=== PATIENT | male | born 1960 | race Asian ===

== ENCOUNTER 2021-04-05 10:15 | Outpatient (RCR) | payer MEDICARE, SELFPAY ==
--- NOTE | 2021-03-29 15:59 | PT.OIE ---
Current Diagnoses Paraplegia, unspecified (03/29/21) Other chronic pain (03/29/21) Lumbago with sciatica, right side (03/29/21) Lumbago with sciatica, left side (03/29/21) Cramp and spasm (03/29/21) Unspecified abnormalities of gait and mobility (03/29/21) Other specified postprocedural states (03/29/21) Visit Care Team Role Provider Type Harvinder Danielson DO Attending Provider Non-Staff Primary Care Provider Referring Provider Specialty: [facility] Address: [address] [place] [address], [id number] Email: Physical Therapy Initial Evaluation PT-OP-A Visit Information Start: 03/25/21 10:40 Freq: Status: Active Protocol: Document 03/29/21 15:23 OF (Rec: 03/29/21 15:59 OF [id number]) Out-Patient Physical Therapy Visit Information Visit Information Visit Type Initial Evaluation Visit Start Time 13:00 Visit Stop Time 13:44 Total Visit Minutes 44 Visit Number 1 Evaluation Information Evaluation Date 03/29/21 Precautions Precautions prior spinal surgery, pt unable to recall details. PT-OP-B Current Condition Start: 03/25/21 10:40 Freq: Status: Active Protocol: Document 03/29/21 15:23 OF (Rec: 03/29/21 15:59 OF [id number]) Current Condition History of Current Condition Onset Date 2015 Current Complaints LE weakness, pain History of Current Condition Pt reports spinal surgery in 2016, he cannot recall specifics. He does have a ~4 incision over mid-back. He states he has had difficulty walking since surgery, and that his MD has stated he is no longer a surgical candidate . Prior Treatments and Tests PT Treatment Goals Patient/Caregiver Goals Get my legs stronger Prior Functional Status Baseline Function- ADL's Modified Independent Baseline Function- Mobility Modified Independent Baseline Function- Other Pt uses 4ww, has 1 flight of stairs with Bilat rails at home PT-OP-C Subjective Start: 03/25/21 10:40 Freq: Status: Active Protocol: Document 03/29/21 15:23 OF (Rec: 03/29/21 15:59 OF [id number]) OP-PT Subjective Patient Comments Patient Comments Pt states he has used KAFO daily x2hrs since surgery to maintain ROM. Patient Reported Progress Same Patient Questionnaires Oswestry Low Back Index Oswestry Impairment 40 to 59% Impaired (Score 40- 59) OP-PT Pain Assessment Pain Assessment Grid Paper Pain Assessment Grid Completed Yes: pt rates pain 4/10, worse at night Location lumbar, R LE Intensity 4 Description Aching,Burning Frequency Frequent Pain Aggravating Factors ADL's,Activity,Exercise, Standing,Sitting,Walking,Stair Climbing,Bending,Lifting Pain Alleviating Factors Inactivity PT-OP-D Balance Start: 03/25/21 10:40 Freq: Status: Active Protocol: Document 03/29/21 15:23 OF (Rec: 03/29/21 15:59 OF [id number]) OP-PT Balance Assessment Sitting Balance Static Sitting Balance Ability Normal Dynamic Sitting Balance Ability Normal Standing Balance Static Standing Balance Ability Fair Dynamic Standing Balance Ability Fair Standing Balance Comments Pt requires UE support to stand Patel Fall Scale Copyright Permission PT-OP-G Mobility & Gait Start: 03/25/21 10:40 Freq: Status: Active Protocol: Document 03/29/21 15:23 OF (Rec: 03/29/21 15:59 OF [id number]) OP Gait Assessment Comments Gait Comments Pt AMB with hyperextended knees bilat, poor pushoff, difficulty with stance stability on R and L. PT-OP-H Neuro Start: 03/25/21 10:40 Freq: Status: Active Protocol: Document 03/29/21 15:23 OF (Rec: 03/29/21 15:59 OF [id number]) Sensation Evaluation Gross Sensation Gross Sensation WNL Comments Summary Comments pt reports occasional burning R lateral LE Muscle Tone Tone Assessment knee extensors Flexor Tone Description Mild Hypertonicity Muscle Tone Comments Pt has incresed knee ext tone with AMB PF Flexor Tone Description Moderate Hypertonicity PT-OP-K Range of Motion Start: 03/25/21 10:40 Freq: Status: Active Protocol: Document 03/29/21 15:23 OF (Rec: 03/29/21 15:59 OF [id number]) Lumbar Spine Range of Motion Lumbar Spine Active Testing Position Sitting Flexion 60 Extension 10 Rotation Left 30 Rotation Right 30 Comments Pt demonstrates good AROM while seated, unable to assess standing due to his need for UE support Ankle and Foot Goniometric Range of Motion Ankle and Foot Left Ankle/Foot ROM WFL No Testing Position Sitting Dorsiflexion with Knee Flexed 5 Dorsiflexion with Knee Extended 0 R Ankle/Foot ROM WFL No Testing Position Sitting Dorsiflexion with Knee Flexed 5 Dorsiflexion with Knee Extended 0 PT-OP-M Strength Start: 03/25/21 10:40 Freq: Status: Active Protocol: Document 03/29/21 15:23 OF (Rec: 03/29/21 15:59 OF [id number]) Hip Strength Hip Manual Muscle Testing L Flexion (L2) 3+ Fair+ Extension (S1) 3+ Fair+ r Flexion (L2) 3+ Fair+ Extension (S1) 3+ Fair+ Knee Strength Knee Manual Muscle Testing L Flexion (S2) 3+ Fair+ Extension (L3) 3+ Fair+ R Flexion (S2) 3+ Fair+ Extension (L3) 3+ Fair+ Ankle/Foot Strength Ankle and Foot Manual Muscle Testing L Dorsiflexion (L4) 2+ Poor+ Plantarflexion (S1) 3+ Fair+ R Dorsiflexion (L4) 2+ Poor+ Plantarflexion (S1) 3+ Fair+ PT-OP-Q Treatments Start: 03/25/21 10:40 Freq: Status: Active Protocol: Document 03/29/21 15:23 OF (Rec: 03/29/21 15:59 OF [id number]) Self-Care/Home Management Treatment Education Patient Education Body Mechanics,Home Exercise Program,Pain Management,Safety Other Education Pt advised to use 4ww to reduce fall risk, lock brakes for sit to stand transfers. He has HEP from prior PT which he demonstrates for UE exercises. He has been educated upon HEP for plantarflexor PT-OP-T Assessment and Plan Start: 03/25/21 10:40 Freq: Status: Active Protocol: Document 03/29/21 15:23 OF (Rec: 03/29/21 15:59 OF [id number]) Physical Therapy Assessment Rehab Potential Rehabilitation Potential Good Evaluation Complexity Number of Personal Factors/Comorbidities 1-2 Number of Body Systems Impaired 1-2 Impairments Impairments Activity Tolerance,Balance, Coordination,Gait,Pain,Soft Tissue Mobility,Strength,Tone Goals 4 Impairment limited community involvement Short Term Goal (STG) pt will AMB 500ft with 4ww MOD I to increase I with community mobility STG Duration 2 weeks Correction Goal (LTG) Pt will AMB > 1200ft with 4ww MOD I to demonstrate increased community mobility LTG Duration 8 weeks 3 Impairment LE weakness Short Term Goal (STG) pt will improve Bilat LE strength to 3+/5 grossly STG Duration 2 weeks 2 Impairment loss of dorsiflexion Short Term Goal (STG) pt will improve dorsiflexion to 5 degrees bilat with knees extended STG Duration 2 weeks Final Touch Up Painter Goal (LTG) pt will improve dorsiflexion to 10 degrees to descend stairs at home LTG Duration 8 weeks 1 Impairment impaired function per modified oswestry Correction Goal (LTG) pt will improve function to score <20 on modified oswestry disability index. LTG Duration 8weeks Assessment Summary Assessment Rito is a pleasant 61 yo male. He is S/p unspecified spinal surgery in 2016. He has had difficulty walking since and limited ROM in Bilat LE. He has used a 4ww since and has had therapy in the past. He states he has gotten weaker over the past yr. He demonstrates extensor tone with standing and is limited with walking and standing balance. He has full UE strength. He denies bowel/ bladder involvement or parasthesia. He is a high fall risk due to his need for UE support to stand or AMB. He will require skilled therapy to reduce fall risk, improve gait pattern, increase LE strength and improve community involvement. Physical Therapy Plan Frequency and Duration Frequency of Treatment 1x/Week Duration of Treatment 8 weeks Plan of Care Start Date 03/29/21 Plan of Care End Date 05/24/21 Therapeutic Interventions Therapeutic Interventions Aquatic Therapy,Balance Training,Gait Training,Home Exercise Program,Manual Therapy,Neuromuscular Re- education,Self-Care/Home Management,Soft Tissue Mobilization,Therapeutic Activities,Therapeutic Exercises Next Visit Focus/Plan Next Note Type Treatment Note Next Visit Plan assess response to HEP for gastroc/soleus stretching. Pt requests to use recumbant bike and parrallel bars, he would like to participate with aquatic therapy when available . Consider quad strengthening, knee flexor strengthening due to difficulty with standing mobility
--- NOTE | 2021-03-29 15:59 | PT.OPPOC ---
Physical, Occupational & Speech Therapy At [facility] Current Diagnoses Paraplegia, unspecified (03/29/21) Other chronic pain (03/29/21) Lumbago with sciatica, right side (03/29/21) Lumbago with sciatica, left side (03/29/21) Cramp and spasm (03/29/21) Unspecified abnormalities of gait and mobility (03/29/21) Other specified postprocedural states (03/29/21) Visit Care Team Role Provider Type Harvinder Danielson DO Attending Provider Non-Staff Primary Care Provider Referring Provider Specialty: [facility] Address: [address] [place] [address], [id number] Email: Plan Of Care PT-OP-T Assessment and Plan Start: 03/25/21 10:40 Freq: Status: Active Protocol: Document 03/29/21 15:23 OF (Rec: 03/29/21 15:59 OF [id number]) Physical Therapy Assessment Rehab Potential Rehabilitation Potential Good Evaluation Complexity Number of Personal Factors/Comorbidities 1-2 Number of Body Systems Impaired 1-2 Impairments Impairments Activity Tolerance,Balance, Coordination,Gait,Pain,Soft Tissue Mobility,Strength,Tone Goals 4 Impairment limited community involvement Short Term Goal (STG) pt will AMB 500ft with 4ww MOD I to increase I with community mobility STG Duration 2 weeks Care Home Goal (LTG) Pt will AMB > 1200ft with 4ww MOD I to demonstrate increased community mobility LTG Duration 8 weeks 3 Impairment LE weakness Short Term Goal (STG) pt will improve Bilat LE strength to 3+/5 grossly STG Duration 2 weeks 2 Impairment loss of dorsiflexion Short Term Goal (STG) pt will improve dorsiflexion to 5 degrees bilat with knees extended STG Duration 2 weeks Build Master Goal (LTG) pt will improve dorsiflexion to 10 degrees to descend stairs at home LTG Duration 8 weeks 1 Impairment impaired function per modified oswestry Care Home Goal (LTG) pt will improve function to score <20 on modified oswestry disability index. LTG Duration 8weeks Assessment Summary Assessment Rito is a pleasant 61 yo male. He is S/p unspecified spinal surgery in 2016. He has had difficulty walking since and limited ROM in Bilat LE. He has used a 4ww since and has had therapy in the past. He states he has gotten weaker over the past yr. He demonstrates extensor tone with standing and is limited with walking and standing balance. He has full UE strength. He denies bowel/ bladder involvement or parasthesia. He is a high fall risk due to his need for UE support to stand or AMB. He will require skilled therapy to reduce fall risk, improve gait pattern, increase LE strength and improve community involvement. Physical Therapy Plan Frequency and Duration Frequency of Treatment 1x/Week Duration of Treatment 8 weeks Plan of Care Start Date 03/29/21 Plan of Care End Date 05/24/21 Therapeutic Interventions Therapeutic Interventions Aquatic Therapy,Balance Training,Gait Training,Home Exercise Program,Manual Therapy,Neuromuscular Re- education,Self-Care/Home Management,Soft Tissue Mobilization,Therapeutic Activities,Therapeutic Exercises Next Visit Focus/Plan Next Note Type Treatment Note Next Visit Plan assess response to HEP for gastroc/soleus stretching. Pt requests to use recumbant bike and parrallel bars, he would like to participate with aquatic therapy when available . Consider quad strengthening, knee flexor strengthening due to difficulty with standing mobility Plan of Care Dates Plan of Care Start Date 03/29/21 Plan of Care End Date 05/24/21 Electronically Signed by: Loyd Louise, PT 03/29/21 3704 Please Sign and Return: I have reviewed this Plan of Care and certify that the skilled therapy services above are required to meet the patient?s needs. Physician Signature Date Printed Name and Credentials Clinical Instructor Signature Printed Name and Credentials
--- NOTE | 2021-04-05 11:20 | PT.OTN ---
Current Diagnoses Paraplegia, unspecified (04/05/21) Other chronic pain (04/05/21) Lumbago with sciatica, right side (04/05/21) Lumbago with sciatica, left side (04/05/21) Cramp and spasm (04/05/21) Unspecified abnormalities of gait and mobility (04/05/21) Other specified postprocedural states (04/05/21) Physical Therapy Treatment Note PT-OP-A Visit Information Start: 03/25/21 10:40 Freq: Status: Active Protocol: Document 04/05/21 10:15 AMB (Rec: 04/05/21 11:20 AMB [id number]) Out-Patient Physical Therapy Visit Information Visit Information Visit Type Treatment Note Visit Start Time 10:15 Visit Stop Time 11:00 Total Visit Minutes 45 Visit Number 2 PT-OP-B Current Condition Start: 03/25/21 10:40 Freq: Status: Active Protocol: Document 03/29/21 15:23 OF (Rec: 03/29/21 15:59 OF [id number]) Current Condition History of Current Condition Onset Date 2015 Current Complaints LE weakness, pain History of Current Condition Pt reports spinal surgery in 2016, he cannot recall specifics. He does have a ~4 incision over mid-back. He states he has had difficulty walking since surgery, and that his MD has stated he is no longer a surgical candidate . Prior Treatments and Tests PT Treatment Goals Patient/Caregiver Goals Get my legs stronger Prior Functional Status Baseline Function- ADL's Modified Independent Baseline Function- Mobility Modified Independent Baseline Function- Other Pt uses 4ww, has 1 flight of stairs with Bilat rails at home PT-OP-C Subjective Start: 03/25/21 10:40 Freq: Status: Active Protocol: Document 04/05/21 10:15 AMB (Rec: 04/05/21 11:20 AMB [id number]) OP-PT Subjective Patient Comments Patient Comments October 13, 2014 Nunu Alford had surgery. Had had pain for a year but had put of surgery. 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 Feels has gotten a lot weaker over the last 3 years. PT-OP-D Balance Start: 03/25/21 10:40 Freq: Status: Active Protocol: Document 03/29/21 15:23 OF (Rec: 03/29/21 15:59 OF [id number]) OP-PT Balance Assessment Sitting Balance Static Sitting Balance Ability Normal Dynamic Sitting Balance Ability Normal Standing Balance Static Standing Balance Ability Fair Dynamic Standing Balance Ability Fair Standing Balance Comments Pt requires UE support to stand Patel Fall Scale Copyright Permission PT-OP-G Mobility & Gait Start: 03/25/21 10:40 Freq: Status: Active Protocol: Document 03/29/21 15:23 OF (Rec: 03/29/21 15:59 OF [id number]) OP Gait Assessment Comments Gait Comments Pt AMB with hyperextended knees bilat, poor pushoff, difficulty with stance stability on R and L. PT-OP-H Neuro Start: 03/25/21 10:40 Freq: Status: Active Protocol: Document 03/29/21 15:23 OF (Rec: 03/29/21 15:59 OF [id number]) Sensation Evaluation Gross Sensation Gross Sensation WNL Comments Summary Comments pt reports occasional burning R lateral LE Muscle Tone Tone Assessment knee extensors Flexor Tone Description Mild Hypertonicity Muscle Tone Comments Pt has incresed knee ext tone with AMB PF Flexor Tone Description Moderate Hypertonicity PT-OP-K Range of Motion Start: 03/25/21 10:40 Freq: Status: Active Protocol: Document 03/29/21 15:23 OF (Rec: 03/29/21 15:59 OF [id number]) Lumbar Spine Range of Motion Lumbar Spine Active Testing Position Sitting Flexion 60 Extension 10 Rotation Left 30 Rotation Right 30 Comments Pt demonstrates good AROM while seated, unable to assess standing due to his need for UE support Ankle and Foot Goniometric Range of Motion Ankle and Foot Left Ankle/Foot ROM WFL No Testing Position Sitting Dorsiflexion with Knee Flexed 5 Dorsiflexion with Knee Extended 0 R Ankle/Foot ROM WFL No Testing Position Sitting Dorsiflexion with Knee Flexed 5 Dorsiflexion with Knee Extended 0 PT-OP-M Strength Start: 03/25/21 10:40 Freq: Status: Active Protocol: Document 03/29/21 15:23 OF (Rec: 03/29/21 15:59 OF [id number]) Hip Strength Hip Manual Muscle Testing L Flexion (L2) 3+ Fair+ Extension (S1) 3+ Fair+ r Flexion (L2) 3+ Fair+ Extension (S1) 3+ Fair+ Knee Strength Knee Manual Muscle Testing L Flexion (S2) 3+ Fair+ Extension (L3) 3+ Fair+ R Flexion (S2) 3+ Fair+ Extension (L3) 3+ Fair+ Ankle/Foot Strength Ankle and Foot Manual Muscle Testing L Dorsiflexion (L4) 2+ Poor+ Plantarflexion (S1) 3+ Fair+ R Dorsiflexion (L4) 2+ Poor+ Plantarflexion (S1) 3+ Fair+ PT-OP-Q Treatments Start: 03/25/21 10:40 Freq: Status: Active Protocol: Document 04/05/21 10:15 AMB (Rec: 04/05/21 11:20 AMB [id number]) Cardio Equipment Recumbent Stepper (Sci-Fit) Duration (Minutes) 8 Resistance 2 Therapeutic Exercises Standing Exercises 4 Standing Exercise Name mini squat Reps/Minutes x4- challenging Comments // bars 3 Standing Exercise Name sidestepping Reps/Minutes 20'x4 Comments //bars 2 Standing Exercise Name march Comments //bars 1 Standing Exercise Name hamstring curl AROM Reps/Minutes 10 Comments //bars Gait Training Gait Activity stairs Description 4 steps Comments alternating ascending, step to descending, heavy use of bilateral rails PT-OP-T Assessment and Plan Start: 03/25/21 10:40 Freq: Status: Active Protocol: Document 04/05/21 10:15 AMB (Rec: 04/05/21 11:20 AMB [id number]) Physical Therapy Assessment Goals 4 Impairment limited community involvement Short Term Goal (STG) pt will AMB 500ft with 4ww MOD I to increase I with community mobility STG Duration 2 weeks Picking Machine Operator Helper Goal (LTG) Pt will AMB > 1200ft with 4ww MOD I to demonstrate increased community mobility LTG Duration 8 weeks 3 Impairment LE weakness Short Term Goal (STG) pt will improve Bilat LE strength to 3+/5 grossly STG Duration 2 weeks 2 Impairment loss of dorsiflexion Short Term Goal (STG) pt will improve dorsiflexion to 5 degrees bilat with knees extended STG Duration 2 weeks Half-Way Goal (LTG) pt will improve dorsiflexion to 10 degrees to descend stairs at home LTG Duration 8 weeks 1 Impairment impaired function per modified oswestry Picking Machine Operator Helper Goal (LTG) pt will improve function to score <20 on modified oswestry disability index. LTG Duration 8weeks Assessment Summary Assessment Genu recurvatum and extensor tone makes gait/standing exercises quite challenging. Did ask Rito to bring his KAFOs at next visit to assess why he isn't wearing them more, although he states he can't do stairs with them and lives in a townhome. He states he tried AFOS previously and they weren't expecially helpful. Physical Therapy Plan Next Visit Focus/Plan Next Note Type Treatment Note Next Visit Plan assess response to HEP for gastroc/soleus stretching. Consider quad strengthening, knee flexor strengthening due to difficulty with standing mobility, consider shuttle recovery.
--- NOTE | 2021-04-15 14:30 | PT.OPDS ---
Current Diagnoses Paraplegia, unspecified (04/05/21) Other chronic pain (04/05/21) Lumbago with sciatica, right side (04/05/21) Lumbago with sciatica, left side (04/05/21) Cramp and spasm (04/05/21) Unspecified abnormalities of gait and mobility (04/05/21) Other specified postprocedural states (04/05/21) Visit Care Team Role Provider Type Harvinder Danielson DO Attending Provider Non-Staff Primary Care Provider Referring Provider Specialty: [facility] Address: [address] [place] [address], [id number] Email: Visit Number Visit Number 2 Discharge Summary PT-OP-B Current Condition Start: 03/25/21 10:40 Freq: Status: Active Protocol: Document 03/29/21 15:23 OF (Rec: 03/29/21 15:59 OF [id number]) Current Condition History of Current Condition Onset Date 2015 Current Complaints LE weakness, pain History of Current Condition Pt reports spinal surgery in 2016, he cannot recall specifics. He does have a ~4 incision over mid-back. He states he has had difficulty walking since surgery, and that his MD has stated he is no longer a surgical candidate . Prior Treatments and Tests PT Treatment Goals Patient/Caregiver Goals Get my legs stronger Prior Functional Status Baseline Function- ADL's Modified Independent Baseline Function- Mobility Modified Independent Baseline Function- Other Pt uses 4ww, has 1 flight of stairs with Bilat rails at home PT-OP-C Subjective Start: 03/25/21 10:40 Freq: Status: Active Protocol: Document 04/05/21 10:15 AMB (Rec: 04/05/21 11:20 AMB [id number]) OP-PT Subjective Patient Comments Patient Comments October 13, 2014 Nunu Alford had surgery. Had had pain for a year but had put of surgery. 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 Feels has gotten a lot weaker over the last 3 years. PT-OP-D Balance Start: 03/25/21 10:40 Freq: Status: Active Protocol: Document 03/29/21 15:23 OF (Rec: 03/29/21 15:59 OF [id number]) OP-PT Balance Assessment Sitting Balance Static Sitting Balance Ability Normal Dynamic Sitting Balance Ability Normal Standing Balance Static Standing Balance Ability Fair Dynamic Standing Balance Ability Fair Standing Balance Comments Pt requires UE support to stand Patel Fall Scale Copyright Permission PT-OP-G Mobility & Gait Start: 03/25/21 10:40 Freq: Status: Active Protocol: Document 03/29/21 15:23 OF (Rec: 03/29/21 15:59 OF [id number]) OP Gait Assessment Comments Gait Comments Pt AMB with hyperextended knees bilat, poor pushoff, difficulty with stance stability on R and L. PT-OP-H Neuro Start: 03/25/21 10:40 Freq: Status: Active Protocol: Document 03/29/21 15:23 OF (Rec: 03/29/21 15:59 OF [id number]) Sensation Evaluation Gross Sensation Gross Sensation WNL Comments Summary Comments pt reports occasional burning R lateral LE Muscle Tone Tone Assessment knee extensors Flexor Tone Description Mild Hypertonicity Muscle Tone Comments Pt has incresed knee ext tone with AMB PF Flexor Tone Description Moderate Hypertonicity PT-OP-K Range of Motion Start: 03/25/21 10:40 Freq: Status: Active Protocol: Document 03/29/21 15:23 OF (Rec: 03/29/21 15:59 OF [id number]) Lumbar Spine Range of Motion Lumbar Spine Active Testing Position Sitting Flexion 60 Extension 10 Rotation Left 30 Rotation Right 30 Comments Pt demonstrates good AROM while seated, unable to assess standing due to his need for UE support Ankle and Foot Goniometric Range of Motion Ankle and Foot Left Ankle/Foot ROM WFL No Testing Position Sitting Dorsiflexion with Knee Flexed 5 Dorsiflexion with Knee Extended 0 R Ankle/Foot ROM WFL No Testing Position Sitting Dorsiflexion with Knee Flexed 5 Dorsiflexion with Knee Extended 0 PT-OP-M Strength Start: 03/25/21 10:40 Freq: Status: Active Protocol: Document 03/29/21 15:23 OF (Rec: 03/29/21 15:59 OF [id number]) Hip Strength Hip Manual Muscle Testing L Flexion (L2) 3+ Fair+ Extension (S1) 3+ Fair+ r Flexion (L2) 3+ Fair+ Extension (S1) 3+ Fair+ Knee Strength Knee Manual Muscle Testing L Flexion (S2) 3+ Fair+ Extension (L3) 3+ Fair+ R Flexion (S2) 3+ Fair+ Extension (L3) 3+ Fair+ Ankle/Foot Strength Ankle and Foot Manual Muscle Testing L Dorsiflexion (L4) 2+ Poor+ Plantarflexion (S1) 3+ Fair+ R Dorsiflexion (L4) 2+ Poor+ Plantarflexion (S1) 3+ Fair+ PT-OP-T Assessment and Plan Start: 03/25/21 10:40 Freq: Status: Active Protocol: Document 04/15/21 14:29 AMB (Rec: 04/15/21 14:30 AMB [id number]) Physical Therapy Assessment Goals 4 Impairment limited community involvement Short Term Goal (STG) pt will AMB 500ft with 4ww MOD I to increase I with community mobility STG Duration 2 weeks Bit Tapper Goal (LTG) Pt will AMB > 1200ft with 4ww MOD I to demonstrate increased community mobility LTG Duration 8 weeks 3 Impairment LE weakness Short Term Goal (STG) pt will improve Bilat LE strength to 3+/5 grossly STG Duration 2 weeks 2 Impairment loss of dorsiflexion Short Term Goal (STG) pt will improve dorsiflexion to 5 degrees bilat with knees extended STG Duration 2 weeks Fdc Goal (LTG) pt will improve dorsiflexion to 10 degrees to descend stairs at home LTG Duration 8 weeks 1 Impairment impaired function per modified oswestry Fdc Goal (LTG) pt will improve function to score <20 on modified oswestry disability index. LTG Duration 8weeks Assessment Summary Assessment After 2 visits Rito called to state he is moving out of the area and requested d/c. Physical Therapy Plan Discharge Physical Therapy Discharge Reasons Patient Request
== END 2021-04-16 13:44 | disposition home or self-care (01) ==
LOC: PHYS 10:15
PROVIDERS: PCP Family Medicine; Referring Provider Family Medicine; Visit Provider Family Medicine
DX: R26.9 Unspecified abnormalities of gait and mobility (principal); R25.2 Cramp and spasm; G82.20 Paraplegia, unspecified; Z98.890 Other specified postprocedural states; M54.41 Lumbago with sciatica, right side; M54.42 Lumbago with sciatica, left side; G89.29 Other chronic pain
CPT/HCPCS: 97110; 97116; 97162